=== PATIENT | female | born 1985 | race African-American/Black ===

== ENCOUNTER 2020-06-22 13:00 | Inpatient (IN) | payer OTHER ==
[2020-06-22] MEDS ORDERED: ELECTROLYTE-148 SOLN 500 ML IV ONE (14:59)
[2020-06-22] MEDS ORDERED: CITRIC ACID/SODIUM CITRATE 30 ML UNIT-DOSE CUP PO ONE (14:59)
[2020-06-22] MEDS ORDERED: ELECTROLYTE-148 SOLN 1,000 ML IV SCH (15:00)
[2020-06-22 15:09] VITALS: BMI 32.5
[2020-06-22] MEDS ORDERED: OXYTOCIN 20 UNITS in 0.9% NS 20 UNIT/1,000 ML INFUS.BAG IV ONE (15:29)
[2020-06-22] MEDS ORDERED: OXYTOCIN 10 UNITS/ML VIAL ONE ×2 (15:36→16:07)
[2020-06-22] MEDS ORDERED: ePHEDrine SULFATE 50 MG/1 ML AMPULE ONE (16:08)
[2020-06-22] MEDS ORDERED: ONDANSETRON 4 MG/2 ML VIAL IVPUSH PRN (16:09)
[2020-06-22 16:23] LABS: HIV INTERPRETATION NEGATIVE (NEGATIVE)
[2020-06-22] MEDS: OXYTOCIN 20 UNITS in 0.9% NS 20 UNIT/1,000 ML INFUS.BAG IV SCH (17:10)
[2020-06-22] MEDS ORDERED: IBUPROFEN 800 MG/8 ML IJ IVPB PRN (17:15)
[2020-06-22] MEDS ORDERED: SENNOSIDES/DOCUSATE COMBO (SENNA PLUS) TABLET (UD) PO PRN (17:15)
[2020-06-22] MEDS ORDERED: oxyCODONE HCL 5 MG TABLET PO PRN ×2 (17:15)
[2020-06-22] MEDS ORDERED: METHYLERGONOVINE MALEATE 0.2 MG/1 ML AMP IM PRN (17:15)
[2020-06-22] MEDS ORDERED: ONDANSETRON 4 MG/2 ML VIAL ONE (18:15)
[2020-06-23] MEDS ORDERED: OXYTOCIN 20 UNITS in 0.9% NS 20 UNIT/1,000 ML INFUS.BAG IV ONE ×2 (01:18→08:18)
[2020-06-23] MEDS: OXYTOCIN 20 UNITS in 0.9% NS 20 UNIT/1,000 ML INFUS.BAG IV SCH (01:30)
[2020-06-23] MEDS ORDERED: PRENATAL VITAMINS W/ FOLIC ACID TABLET (FP) PO ONE (10:19)
[2020-06-23] MEDS: PRENATAL VITAMINS W/ FOLIC ACID TABLET (FP) PO SCH (10:30)
[2020-06-23 12:06] LABS: BASO % 0.3 % (0-2.0); EOS % 0.4 % (0-4.5); HEMATOCRIT 32.9 % (32.4-45.2); HEMOGLOBIN 11.4 GM/dL (10.7-15.3); LYMPH % 11.2 % (8-40); MCH 34.1 pg (25.7-33.7); MCHC 34.5 g/dl (32.0-36.0); MEAN CELL VOLUME 98.6 fl (80-96); MEAN PLT VOLUME 10.7 fl (7.5-11.1); MONO % 5.7 % (3.8-10.2); NEUT % 82.4 % (42.8-82.8); PLATELET COUNT 177 K/MM3 (134-434); RBC 3.33 M/mm3 (3.60-5.2); RDW 13.7 % (11.6-15.6); WHITE BLOOD COUNT 11.9 K/mm3 (4.0-10.0)
[2020-06-23] MEDS ORDERED: BISACODYL 10 MG SUPP.RECT RC PRN (17:15)
[2020-06-23] MEDS: IBUPROFEN 600 MG TABLET (FP) PO PRN (17:26)
[2020-06-23] MEDS: ACETAMINOPHEN 325 MG TABLET (FP) PO PRN (17:26)
[2020-06-23] MEDS: SIMETHICONE 80 MG TAB.CHEW (FP) PO PRN (17:27)
[2020-06-24] MEDS: ACETAMINOPHEN 325 MG TABLET (FP) PO PRN ×2 (08:40→18:01)
[2020-06-24] MEDS: SIMETHICONE 80 MG TAB.CHEW (FP) PO PRN ×2 (08:41→18:01)
[2020-06-24] MEDS: IBUPROFEN 600 MG TABLET (FP) PO PRN ×2 (08:41→18:01)
[2020-06-24] MEDS: PRENATAL VITAMINS W/ FOLIC ACID TABLET (FP) PO SCH (09:35)
[2020-06-25] MEDS: IBUPROFEN 600 MG TABLET (FP) PO PRN (09:36)
[2020-06-25] MEDS: ACETAMINOPHEN 325 MG TABLET (FP) PO PRN (09:37)
[2020-06-25] MEDS: PRENATAL VITAMINS W/ FOLIC ACID TABLET (FP) PO SCH (09:38)
[2020-06-25] MEDS: SIMETHICONE 80 MG TAB.CHEW (FP) PO PRN (09:38)
[2020-06-25 14:13] VITALS: BP 123/81; PULSE 87; TEMP 98.8
== END 2020-06-25 13:40 | disposition home or self-care (01) | DRG 540 ==
LOC: JLDR 13:20 → J3W 06-23 17:25
PROVIDERS: ADMIT Obstetrics & Gynecology; ATTEND Obstetrics & Gynecology
PROC: 10D00Z1 Extraction of Products of Conception, Low, Open Approach (ICD-10-PCS; principal; 2020-06-22)
DX: O32.1XX0 Maternal care for breech presentation, not applicable or unspecified (principal); Z3A.39 39 weeks gestation of pregnancy; Z37.0 Single live birth
CPT/HCPCS: 36415; 85025; 86762; 86780; 87340; 87389; 88307-TC